=== PATIENT | male | born 1985 | race Caucasian/White ===

== ENCOUNTER 2019-01-25 10:58 | Emergency (ER) | payer OTHER ==
[2019-01-25 11:09] VITALS: BP 149/88
--- NOTE | 2019-01-25 11:16 | UC ---
Hand/Wrist HPI - HPI Summary HPI Summary: 33 yo male presents with LEFT hand injury. He tells me that just [employer] he accidentally smashed his left hand in the car door while at work. He sustained an abrasion to his left index and middle fingers with pain in these fingers. 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 Has not taken anything OTC for his discomfort. Unsure date of last tetanus. - History Of Current Complaint Chief Complaint: UCUpperExtremity Stated Complaint: HAND SMASHED Time Seen by Provider: 01/25/19 11:16 Onset/Duration: Sudden Onset Severity Initially: Severe Severity Currently: Severe Pain Intensity: 10 Pain Scale Used: 0-10 Numeric - Allergies/Home Medications Allergies/Adverse Reactions: Allergies Allergy/AdvReac Type Severity Reaction Status Date / Time iodine Allergy Rash Verified 01/25/19 11:10 PMH/Surg Hx/FS Hx/Imm Hx - Additional Past Medical History Additional PMH: None - Surgical History Surgical History: Yes Surgery Procedure, Year, and Place: left shoulder surgery,hernia - Family History Known Family History: Positive: None - Social History Occupation: Employed Full-time Lives: With Family Alcohol Use: Occasionally Substance Use Type: None Smoking Status (MU): Never Smoked Tobacco Review of Systems All Other Systems Reviewed And Are Negative: Yes Constitutional: Positive: Negative Skin: Positive: Other - Abrasion left hand Respiratory: Positive: Negative Cardiovascular: Positive: Negative Neurovascular: Positive: Negative Musculoskeletal: Positive: Other: - Left hand crush injury Neurological: Positive: Negative Psychological: Positive: Negative Physical Exam - Summary Physical Exam Summary: GENERAL: NAD. WDWN. No pain distress. SKIN: LEFT HAND: distal index finger with partial thickness abrasion and scant active bleeding. 5mm Superficial abrasion overlying dorsal aspect of 3rd proximal phalanx. No nail avulsion. CHEST: No accessory muscle use. Breathing comfortably and in no distress. CV: Pulses intact radial and ulnar. Cap refill <2seconds MSK: LEFT HAND: Index finger; Mild TTP about PIP, DIP, and distal phalanx. Decreased flexion due to pain. No edema. Full extension. Middle finger: Mild TTP about entire dorsal digit. Decreased flexion due to pain. Full extension. Unable to make a fist due to pain and decreased flexion. NEURO: Alert. Sensations intact hand and all fingers. PSYCH: Age appropriate behavior. Triage Information Reviewed: Yes Vital Signs: Initial Vital Signs Temp 98 F 01/25/19 11:05 Pulse 69 01/25/19 11:05 Resp 17 01/25/19 11:05 BP 149/88 01/25/19 11:05 Pulse Ox 100 01/25/19 11:05 Vital Signs Reviewed: Yes Hand/Wrist Course/Dx - Course Course Of Treatment: XR: IMPRESSION: SMALL FRACTURE FRAGMENT AT THE DORSAL BASE OF THE DISTAL PHALANX OF THE THIRD FINGER. The wounds were cleansed with NS. tdap updated today. Discussed XR with pt and placed in a finger splint. Advised to RICE and take ibuprofen for discomfort. Strongly advised to f/u with Occupational medicine or Orthopedics, but pt lives in [place] and prefers to follow up there on his own. - Differential Dx/Diagnosis Provider Diagnosis: Injury, crush, finger Discharge - Sign-Out/Discharge Documenting (check all that apply): Patient Departure All imaging exams completed and their final reports reviewed: Yes - Discharge Plan Condition: Stable Disposition: HOME Prescriptions: Ibuprofen TAB* [Motrin TAB* 800 MG] 800 mg PO Q6H PRN #30 tab PRN Reason: Pain Patient Education Materials: Finger Fracture (ED), Crush Injury (ED) Forms: *Work Release Referrals: No Primary Care Phys,NOPCP [Primary Care Provider] - Additional Instructions: If you develop a fever, shortness of breath, chest pain, new or worsening symptoms - please call your PCP or go to the ED immediately. Your blood pressure was high at todays visit. Please see your primary provider within 4 weeks for recheck and re-evaluation. 1) Rest, Ice, and elevate your hand/fingers intermittently throughout the day to reduce pain and swelling 2) Take the ibuprofen as directed 3) Use the finger splint as much as possible 4) I strongly advise that you follow up with Orthopedics in your hometown early next week for a recheck and for further determination of your work status. - Billing Disposition and Condition Condition: STABLE Disposition: Home
[2019-01-25] MEDS ORDERED: Tetan/Diph/Pertus SYR(Tdap)* 0.5 ML SYR(BOOSTRIX) use SYR IM ONE (11:46)
[2019-01-25] MEDS ORDERED: Ibuprofen TAB* 400 MG PO ONE (11:46)
== END 2019-01-25 12:37 | disposition home or self-care (01) ==
LOC: UCEAST 10:58 → EDBD 10:58 → UCEAST 12:37
DX: S67.193A Crushing injury of left middle finger, initial encounter (principal); W23.0XXA Caught, crushed, jammed, or pinched between moving objects, initial encounter; Y92.89 Other specified places as the place of occurrence of the external cause; Y99.0 Civilian activity done for income or pay
CPT/HCPCS: 90715; 99201; A9270-GY; G0463